=== PATIENT | male | born 1980 | race Caucasian/White ===

== ENCOUNTER 2020-07-09 11:25 | Outpatient (CLI) | payer OTHER, SELFPAY ==
--- NOTE | ~2020-07-09 | XR_ITS ---
EXAMINATION: XR knee RT 2V DATE: 07/09/2020 11:44 INDICATION: Right knee pain. TECHNIQUE: 2 views of right knee were obtained. COMPARISON: Right knee radiographs 11/14/2016 FINDINGS: Bone alignment is normal. No fracture. There is mild tricompartmental osteoarthritis. No kn ee joint effusion. IMPRESSION: 1. Mild right knee osteoarthritis. Reviewed, dictated and finalized at location A.
== END 2020-07-09 11:26 | disposition home or self-care (01) ==
PROVIDERS: PCP Nurse Practitioner Family; Visit Provider Nurse Practitioner Family
DX: M25.561 Pain in right knee (principal)
CPT/HCPCS: 73560

== ENCOUNTER 2020-11-05 10:35 | Outpatient (CLI) | payer BC, SELFPAY ==
[2020-11-05 14:42] LABS: SARS-CoV-2 Ag Positive (Negative)
[2020-11-05 22:05] LABS: SARS-CoV-2 RNA PCR Positive
== END 2020-11-05 10:36 | disposition home or self-care (01) ==
PROVIDERS: PCP Nurse Practitioner Family; Visit Provider Nurse Practitioner Family
DX: U07.1 COVID-19 (principal); R09.81 Nasal congestion; R43.2 Parageusia
CPT/HCPCS: 87426; C9803; U0003; U0005

== ENCOUNTER 2021-06-03 08:35 | Outpatient (RCR) | payer OTHER, SELFPAY ==
--- NOTE | 2021-06-03 09:10 | PTOPEVAL ---
Thank you for referring Sergey Knight to [facility].? The patient is scheduled to be seen for therapy? __3__x/week for 12 visits. Please review, sign, date and return this plan of care JASPREET. I agree with and certify that the following plan of care is medically necessary. Referring Physician Date Admitting Provider: Attending Provider: Contreras Cerda, MD Lanie Referring Provider: *PT Outpatient Evaluation Start: 06/03/21 08:36 Freq: Status: Active Protocol: Document 06/03/21 08:36 [facility] (Rec: 06/03/21 09:09 [facility] [id number]) Therapy Assessment Status Assessment Status Assessment Status Evaluation Evaluation Information Problem Diagnosis right knee microfx, med. and lat. menisectomies Onset 06/27/20 Subjective Information Pt. reports he tripped over a Query Text:As Reported By Patient/ piece of rebar in June of Family last year. He reports that fall resulted in tears in the meniscus. He states that he underwent surgery on the knee 05/06/21. He states that since surgery he has noticed the knee is giving out less. He states that he still cannot go up and down steps without pain and buckling of the knee. He states that navigating stairs remains difficult due to pain. He states that he has not returned to work since the initial injury. He reports that his doctor anticipates a return to work 3-4 months post surgery. He reports that his goal is to be able to walk normally again. Prior Level of Function Activity Level (Last 3 Months) Occupation construction work Hand Dominance Right Activity of Daily Living Ability Independent Indoor/Home Mobility Independent Community Mobility Independent Stairs Ability Independent Functional Cognition (Planning, Shopping Independent , Taking Medications) Cooking Yes Cleaning Yes Laundry Yes Shopping Yes Driving Yes Comments Additional Prior Level of Function Pt. reports that he had no Comments
--- NOTE | 2021-07-02 09:38 | PTOPEVAL ---
Thank you for referring Sergey Knight to [facility] [place] The patient is scheduled to be seen for therapy? ____x/week for ___ weeks. Please review, sign, date and return this plan of care JASPREET. I agree with and certify that the following plan of care is medically necessary. Referring Physician Date Admitting Provider: Attending Provider: Contreras Cerda, MD Lanie Referring Provider: *PT Outpatient Evaluation Start: 06/03/21 08:36 Freq: Status: Active Protocol: Document 07/02/21 08:15 [facility] (Rec: 07/02/21 09:37 [facility] [id number]) Therapy Assessment Status Assessment Status Assessment Status Re-evaluation Evaluation Information Problem Diagnosis right knee microfx, med. and lat. menisectomies Onset 06/27/20 Subjective Information patient reports he feels Query Text:As Reported By Patient/ alright this date. he reports Family he is unable to complete steps still on the R LE without the assist of bilateral hands on arm rails. he reports this activity increases his pain, and feels like his R knee is going to give out on him. he reports to return to work he needs to be able to carry things and frequently go up and down steps. Pain Assessment Timing of Pain Assessment Timing of Pain Assessment Assessment Pain Scale Pain Scale Used Numeric (1 - 10) Self Report Pain Assessment Right Knee(s) Reported Pain Level 3 Greatest Pain Intensity 6 Pain Score Pain Score 3: Self Report Interventions Used Interventions Used By Clinicians Activity or ADL's,Electrical Stimulation,Exercise,Heat Lower Extremity Range of Motion Knee Range of Motion Right Knee Flexion Range of Motion - Active 122 Knee Extension Range of Motion - Active 0 Query Text: Lower Extremity Muscle Strength Testing General Lower Extremity Strength Gross Lower Extremity Strength 440 lb single leg press L leg at seat position 12 85 lb single leg press R leg at seat position 12 Hip Strength Right Hip Flexion Strength 4+ Good + Knee Strength Right Knee Flexion Strength 5 Normal Knee Extension Strength 4+ Good + Muscle Length Testing Muscle Length Testing Right Hamstring Length 15 Query Text:(90 - 90 Position) Gait Assessment Gait Pattern Assessment Other
--- NOTE | 2021-07-17 08:57 | PCPTNOTE ---
Mr Knight has attended a total of 19 treatment sessions since evaluation on 06/03/21. Currently the patients treatment has consisted of modality treatment to address pain, therapeutic exercises to address strength, stability and range of motion, as well as therapeutic exercises to improve function. Patient currently presents with 0-180 degrees of AROM. There are no significant strength deficits noted with manual muscle testing this date. Patient does present with apprehension while descending stairs with noted twitching of the right lower extremity with this activity. Patient continues to present with apprehension while performing single limb press on right compared to left. Gait mechanics have significantly improved, however there is still a noted decreased stance time on right lower extremity compared to left especially after activity. While objective data has improved patient continues to express subjective limitations in regards to pain. We will continue with patient's current plan of care continuing to improve functional mobility specifically with stairs. Thank you for the referral of this patient. Please contact our team with any questions at [phone]. Sincerely, Shannan Mayen PTA / Westley Morales, MPT
--- NOTE | 2021-07-19 09:20 | PTOPEVAL ---
Thank you for referring Sergey Knight to [facility] [place] The patient is scheduled to be seen for therapy? ____x/week for ___ weeks. Please review, sign, date and return this plan of care JASPREET. I agree with and certify that the following plan of care is medically necessary. Referring Physician Date Admitting Provider: Attending Provider: Contreras CerdaJr. MD Referring Provider: *PT Outpatient Evaluation Start: 06/03/21 08:36 Freq: Status: Active Protocol: Document 07/19/21 08:15 [facility] (Rec: 07/19/21 09:19 [facility] [id number]) Therapy Assessment Status Assessment Status Assessment Status Re-evaluation Evaluation Information Problem Diagnosis right knee microfx, med. and lat. menisectomies Onset 06/27/20 Pain Assessment Timing of Pain Assessment Timing of Pain Assessment Assessment Pain Scale Pain Scale Used Numeric (1 - 10) Self Report Pain Assessment Right Knee(s) Reported Pain Level 3 Greatest Pain Intensity 6 Pain Score Pain Score 3: Self Report Interventions Used Interventions Used By Clinicians Activity or ADL's,Education, Exercise Lower Extremity Range of Motion Knee Range of Motion Right Knee Flexion Range of Motion - Active 130 Knee Extension Range of Motion - Active 0 Query Text: Lower Extremity Muscle Strength Testing General Lower Extremity Strength Gross Lower Extremity Strength 440 lb single leg press L leg at seat position 12 130 lb single leg press R leg at seat position 12 Hip Strength Right Hip Flexion Strength 4+ Good + Knee Strength Right Knee Flexion Strength 5 Normal Knee Extension Strength 4+ Good + Muscle Length Testing Muscle Length Testing Right Hamstring Length 15 Query Text:(90 - 90 Position) Palpation Assessment Palpation Palpation audible and palpable pop in the R patella coming from flexed to extended with overpressure of the R knee. Gait Assessment Gait Pattern Assessment Other Gait Observations patient ambulates into the clinic with normal gait mechanics. however, after stepping exercises, and leg press machine, patient does display antalgia favoring the R LE. patient is unable to push up onto step with the R LE without UE assist due to
--- NOTE | 2021-08-12 09:15 | PTOPEVAL ---
Thank you for referring Sergey Knight to [facility].? The patient is scheduled to be seen for therapy? ____x/week for ___ weeks. Please review, sign, date and return this plan of care JASPREET. I agree with and certify that the following plan of care is medically necessary. Referring Physician Date Admitting Provider: Attending Provider: Contreras CerdaJr. MD Referring Provider: *PT Outpatient Evaluation Start: 06/03/21 08:36 Freq: Status: Active Protocol: Document 08/12/21 08:11 [facility] (Rec: 08/12/21 09:13 [facility] [id number]) Therapy Assessment Status Assessment Status Assessment Status Progress Evaluation Information Problem Diagnosis R knee microfracture, medial and lateral menisectomies Onset 06/27/20 Subjective Information Patient reports that he Query Text:As Reported By Patient/ continues to have difficulty Family with steps because he needs to go one step at a time. He reports that his knee will give out if he steps with the R foot. He reports that ladders are worse than steps. Patient reports that when he moves from knee flexion to extension the knee cap feels tight and needs to pop. Pain Assessment Timing of Pain Assessment Timing of Pain Assessment Assessment Pain Scale Pain Scale Used Numeric (1 - 10) Self Report Pain Assessment Right Knee(s) Reported Pain Level 3 Greatest Pain Intensity 6 Pain Score Pain Score 3: Self Report Interventions Used Interventions Used By Clinicians Activity or ADL's,Exercise Lower Extremity Muscle Strength Testing General Lower Extremity Strength Gross Lower Extremity Strength 440 lb single press on L leg at seat position 12 130 lb single leg press on R leg at seat position 12 Hip Strength Right Hip Flexion Strength 5 Normal Knee Strength Right Knee Flexion Strength 5 Normal Knee Extension Strength 5 Normal Muscle Length Testing Muscle Length Testing Right Hamstring Length 10 Query Text:(90 - 90 Position) General Exercise General Exercises Exercise Description - nustep 10 minutes level 6 Query Text:Record Sets, Reps, - shallow squats x 20 on BOSU Resistance, and Position - lunges BOSU x 20 - fitterboard taps x 20 and balance x 1 min both directions
--- NOTE | 2021-08-26 08:47 | PCPTNOTE ---
Sergey Knight Male : 1980 Emr# [id number] Mr Knight has attended a total of 36 treatment sessions since evaluation on 06/03/21. Currently the patients treatment has consisted of therapeutic exercises to address strength, stability and range of motion, as well as therapeutic exercises to improve function. Patient currently presents with 0-130 degrees of AROM. There are no significant strength deficits noted with manual muscle testing this date slightly at a 4+/5 on right vs 5/5 on left quads. Patient has improved with strength on single leg press to 130# on right compared to 60# initially. Gait mechanics have significantly improved until patient has to carry anything with weight in whiich his gait pattern changes to decreased stance time on right. While objective data has improved patient continues to express subjective limitations in regards to pain. We will continue with patient's current plan of care continuing to improve functional mobility specifically with stairs. Thank you for the referral of this patient. Please contact our team with any questions at [phone]. Sincerely, Marilyn Gonzalez PTA / Westley Morales, MPT
--- NOTE | 2021-08-30 11:10 | PTOPEVAL ---
Thank you for referring Sergey Knight to [facility].? The patient is scheduled to be seen for therapy? ____x/week for ___ weeks. Please review, sign, date and return this plan of care JASPREET. I agree with and certify that the following plan of care is medically necessary. Referring Physician Date Admitting Provider: Attending Provider: Contreras CerdaJr. MD Referring Provider: *PT Outpatient Evaluation Start: 06/03/21 08:36 Freq: Status: Active Protocol: Document 08/30/21 09:00 [facility] (Rec: 08/30/21 11:09 [facility] [email or web address]) Therapy Assessment Status Assessment Status Assessment Status Re-evaluation Evaluation Information Problem Diagnosis R tibial microfracture Onset 06/27/20 Subjective Information Patient reports that the knee Query Text:As Reported By Patient/ is really bothering him with Family functional activities such as steps and walking. He reports he still is not able to get back to his work activities safely. Pain Assessment Timing of Pain Assessment Timing of Pain Assessment Assessment Pain Scale Pain Scale Used Numeric (1 - 10) Self Report Pain Assessment Right Knee(s) Reported Pain Level 3 Greatest Pain Intensity 7 Pain Score Pain Score 3: Self Report Interventions Used Interventions Used By Clinicians Activity or ADL's,Exercise Lower Extremity Muscle Strength Testing Knee Strength Right Knee Flexion Strength 5 Normal Knee Extension Strength 4+ Good + Knee Strength Comments 170lb single leg press on the R at seat position 12- max Gait Assessment Gait Assessment Additional Ambulation Comments Patient ambulates into the clinic with proper mechanics at the beginning of the session, but after exercises, the patient ambulates out of the clinic with antalgia due to decreased stance time on the R. Stair Climbing Assessment Stair Climbing Assessment Stair Climbing Comments Patient unable to ascend and descend steps this visit without significant UE use. General Exercise General Exercises Exercise Description please refer to Shannan Query Text:Record Sets, Reps, [place], [employer] treatment note Resistance, and Position for session with patient PT Clinical Summary Clinical Summary Protocol: PTEVCODE PT Clinical Summary Patient is a 40 year old male
== END 2021-08-30 23:59 | disposition still patient (30) ==
LOC: CHSPT 08:35
PROVIDERS: Visit Provider Orthopaedic Surgery
DX: S82.001D Unspecified fracture of right patella, subsequent encounter for closed fracture with routine healing (principal); Z98.890 Other specified postprocedural states
CPT/HCPCS: 97014; 97110; 97161; 97530; G0283

== ENCOUNTER 2021-09-02 08:33 | Outpatient (RCR) | payer OTHER, SELFPAY ==
--- NOTE | 2021-10-17 09:17 | PTOPEVAL ---
Thank you for referring Sergey Knight to [facility]. Please review, sign, date and return this plan of care JASPREET. I agree with and certify that the following plan of care is medically necessary. Referring Physician Date Admitting Provider: Attending Provider: Contreras CerdaJr. MD Referring Provider: *PT Outpatient Evaluation Start: 09/25/21 08:06 Freq: Status: Active Protocol: Document 10/17/21 08:24 [facility] (Rec: 10/17/21 09:11 [facility] [email or web address]) Therapy Assessment Status Assessment Status Assessment Status Discharge Evaluation Information Problem Diagnosis right tibial microfracture Onset 06/27/20 Subjective Information Pt. reports that he is feeling Query Text:As Reported By Patient/ better. He reports that pain Family levels are currently 2/10. He reports that climbing a ladder or stairs increase pain to 5-6/10, but pain reduces back to 2/10 after 30 minutes. He reports that he returns to the doctor next week. He states that his biggest concern is navigation of ladders and stairs upon return to work, as he still has pain with these activities. Pain Assessment Pain Scale Pain Scale Used Numeric (1 - 10) Self Report Pain Assessment Right Knee(s) Reported Pain Level 2 Pain Score Pain Score 2: Self Report Interventions Used Interventions Used By Clinicians Activity or ADL's,Education, Exercise,Standing Lower Extremity Range of Motion General Lower Extremity Range of Motion Gross Lower Extremity Range of Motion Pt. presents with 0-128 Comments degrees right knee AROM Lower Extremity Muscle Strength Testing General Lower Extremity Strength Gross Lower Extremity Strength Pt. completes single limib leg press from 90 degrees to full knee extension with 1 rep max of 230#. No deficits in l.e. strength noted with manual mm . testing on the date. Gait Assessment Gait Assessment Additional Ambulation Comments Pt. ambulates over level surface without deviation. He navigates steps with reciprical pattern without handhold. General Exercise General Exercises Exercise Description -recumbent bike x 10 minutes Query Text:Recor
--- NOTE | 2021-11-01 10:33 | PTOPEVAL ---
Thank you for referring Sergey Knight to [facility] [place]Note 3[facility]? The patient is scheduled to be seen for therapy? ____x/week for ___ weeks. Please review, sign, date and return this plan of care JASPREET. I agree with and certify that the following plan of care is medically necessary. Referring Physician Date Admitting Provider: Attending Provider: Contreras Cerda, MD Lanie Referring Provider: *PT Outpatient Evaluation Start: 09/25/21 08:06 Freq: Status: Active Protocol: Document 11/01/21 08:30 [facility] (Rec: 11/01/21 10:32 [facility] [id number]) Therapy Assessment Status Assessment Status Assessment Status Re-evaluation Evaluation Information Problem Diagnosis right tibial microfracture Onset 06/27/20 Additional Evaluation Detail LEFS = 41% functionally declined FABQPA = 13 FABQW = 30 Subjective Information patient reports he returned to Query Text:As Reported By Patient/ see his MD on or about 10/23/ Family 22. he reports he is still having pain in the R knee. he reports his Md was not ok with sending him back to work at this time. he reports he is awaiting an MRI of the R knee, but MD requests her continue skilled PT until pain is resolved. he reports he continues to have pain with steps, climbing (like ladders) , lunges, and stepping forward with the R knee first. he reports he was not cleared to return to work in any capacity yet. patients new orders suggest 3x weekly for 5 weeks (15 total visits). Pain Assessment Timing of Pain Assessment Timing of Pain Assessment Assessment Pain Scale Pain Scale Used Numeric (1 - 10) Self Report Pain Assessment Right Knee(s) Reported Pain Level 2 Greatest Pain Intensity 6 Pain Score Pain Score 2: Self Report Interventions Used Interventions Used By Clinicians Activity or ADL's,Education, Exercise,Standing Lower Extremity Range of Motion General Lower Extremity Range of Motion Gross Lower Extremity Range of Motion Pt. presents with 0-128 Comments degrees right knee AROM Lower Extremity Muscle Strength Testing General Lower Extremity Strength Gross Lower Extremity Strength 210# x1 rep on the R LE leg
== END 2021-12-02 23:59 | disposition still patient (30) ==
LOC: CHSPT 08:33
PROVIDERS: Visit Provider Orthopaedic Surgery
DX: Z98.890 Other specified postprocedural states (principal)
CPT/HCPCS: 97110; 97164; 97530

== ENCOUNTER 2021-12-04 08:30 | Outpatient (RCR) | payer OTHER, SELFPAY ==
--- NOTE | 2021-12-11 10:02 | PTOPEVAL ---
Thank you for referring Sergey Knight to [facility].? The patient is scheduled to be seen for therapy? ____x/week for ___ weeks. Please review, sign, date and return this plan of care JASPREET. I agree with and certify that the following plan of care is medically necessary. Referring Physician Date Admitting Provider: Attending Provider: Contreras Cerda, MD Lanie Referring Provider: *PT Outpatient Evaluation Start: 12/04/21 08:30 Freq: Status: Active Protocol: Document 12/04/21 08:30 [facility] (Rec: 12/11/21 10:01 [facility] [email or web address]) Therapy Assessment Status Assessment Status Assessment Status Re-evaluation Evaluation Information Problem Diagnosis R tibial microfracture and mensicectomies Onset 06/27/20 Subjective Information patient reports continues pain Query Text:As Reported By Patient/ in the R knee with heavy Family lifting, leg press, and ladder climbing activities. he reports he attempted to climb a ladder last night at home, but was unable to control himself using just legs on ladder, and was unable to push up with the R LE on the ladder to climb. Pain Assessment Timing of Pain Assessment Timing of Pain Assessment Assessment Pain Scale Pain Scale Used Numeric (1 - 10) Self Report Pain Assessment Right Knee(s) Reported Pain Level 3 Pain Score Pain Score 3: Self Report Interventions Used Interventions Used By Clinicians Activity or ADL's,Education, Exercise Lower Extremity Range of Motion General Lower Extremity Range of Motion Reason Not Measured WNL/Left,WNL/Right Lower Extremity Muscle Strength Testing General Lower Extremity Strength Gross Lower Extremity Strength 5/5 R knee strength sitting EOB patient displays 430lb 1 rep leg press strength of the L LE patient displays increase from 210lb 1 rep leg press on the R LE to 220lb 1 rep leg press on the R this date. Gait Assessment Gait Pattern Assessment Other Gait Observations patient ambulates with mild R trunk lean antalgia still on level ground. patient ambulates up steps reciprocally but with hand rail hold and increased effort
--- NOTE | 2022-01-01 06:53 | PTOPEVAL ---
Thank you for referring Sergey Knight to [facility]. Please review, sign, date and return this plan of care JASPREET. I agree with and certify that the following plan of care is medically necessary. Referring Physician Date Admitting Provider: Attending Provider: Contreras Cerda, MD Lanie Referring Provider: *PT Outpatient Evaluation Start: 12/04/21 08:30 Freq: Status: Active Protocol: Document 12/31/21 15:00 [facility] (Rec: 01/01/22 06:53 [facility] [email or web address]) Therapy Assessment Status Assessment Status Assessment Status Progress Evaluation Information Problem Diagnosis right tibial microfractutre and menisectomy Onset 06/27/20 Subjective Information Pt. reports that he still has Query Text:As Reported By Patient/ concern with going up and down Family steps at work. He states that he has to be able to navigate stairs with 40# cables over his shoulders. He reports that the right leg is still a little shaky with stairs. He states that he would consider returning to work and seeing if he can do most task and feels that he may be able to make modifications to be able to return to work. Pain Assessment Timing of Pain Assessment Timing of Pain Assessment Pre-Treatment Pain Scale Pain Scale Used Numeric (1 - 10) Self Report Pain Assessment Right Knee(s) Reported Pain Level 2 Lowest Pain Intensity 0 Greatest Pain Intensity 4 Pain Aggravating Factors Stair Climbing Pain Score Pain Score 2: Self Report Interventions Used Interventions Used By Clinicians Activity or ADL's,Exercise Lower Extremity Muscle Strength Testing General Lower Extremity Strength Gross Lower Extremity Strength Pt. demonstrates no strength deficits at the bilateral l.e. with manual mm. testing. He completes 1 rep max on the leg press with the right l.e. with a max weight of 280#, a 60# increase since last evaluated. Posture Posture Standing Position Additional Posture Comments Despite reported right l.e. weakness, pt. presents with no indication of atrophy wtih
--- NOTE | 2022-01-08 16:00 | PTOPEVAL ---
Thank you for referring Sergey Knight to [facility].? The patient is scheduled to be seen for therapy? ____x/week for ___ weeks. Please review, sign, date and return this plan of care JASPREET. I agree with and certify that the following plan of care is medically necessary. Referring Physician Date Admitting Provider: Attending Provider: Contreras Cerda, MD Lanie Referring Provider: *PT Outpatient Evaluation Start: 12/04/21 08:30 Freq: Status: Active Protocol: Document 01/08/22 08:30 [facility] (Rec: 01/08/22 15:59 [facility] [email or web address]) Therapy Assessment Status Assessment Status Assessment Status Re-evaluation Evaluation Information Problem Diagnosis right tibial microfractutre and menisectomy Onset 06/27/20 Subjective Information patient reports he has Query Text:As Reported By Patient/ returned from his MD with new Family orders to continue skilled PT. he reports he asked about continuing with work conditioning and his surgeon is happy with the therapy he is in now. he reports he needs to contineu to improve his strength so there is less of a gap between single leg press strength of the L and R LE's. Pain Assessment Timing of Pain Assessment Timing of Pain Assessment Assessment Pain Scale Pain Scale Used Numeric (1 - 10) Self Report Pain Assessment Right Knee(s) Reported Pain Level 3 Pain Score Pain Score 3: Self Report Interventions Used Interventions Used By Clinicians Activity or ADL's,Education, Exercise Lower Extremity Muscle Strength Testing General Lower Extremity Strength Gross Lower Extremity Strength Pt. demonstrates no strength deficits at the bilateral l.e. with manual mm. testing. He completes 40 reps at 220lbs with the R LE on single leg press. single leg R LE leg press max of 280lbs. Gait Assessment Gait Assessment Additional Ambulation Comments Pt. ambulates over level surface without deviation. he displays ability to ambulate up and down step of 8in height with single leg performance and no handrail assist both forward and laterally. General Exercise General Exercises Exercise Vlad
--- NOTE | 2022-02-06 09:18 | PTOPEVAL ---
Thank you for referring Sergey Knight to [facility].? Please review, sign, date and return this plan of care JASPREET. I agree with and certify that the following plan of care is medically necessary. Referring Physician Date Admitting Provider: Attending Provider: Contreras CerdaJr. MD Referring Provider: *PT Outpatient Evaluation Start: 12/04/21 08:30 Freq: Status: Active Protocol: Document 02/06/22 07:30 [facility] (Rec: 02/06/22 09:18 [email or web address]) Therapy Assessment Status Assessment Status Assessment Status Progress Evaluation Information Problem Diagnosis right tibial microfracture and menisectomy Onset 06/27/20 Subjective Information Pt. reports he currently has Query Text:As Reported By Patient/ no pain. He reports that he Family may experience a brief bout of pain that is 4/10 at worst, but subsides quickly. He is going up and down stairs without a problem. He reports that he still has concern regarding navigating steps at work with extra weight. Pt. reports that he will return to the doctor tomorrow. Pain Assessment Timing of Pain Assessment Timing of Pain Assessment Pre-Treatment Self Report Self Report Pain Level 0 Pain Score Pain Score 0: Self Report Lower Extremity Muscle Strength Testing General Lower Extremity Strength Gross Lower Extremity Strength Manual mm. testing continues to demonstrate symmetry. He performs 1 rep max of 320# on the right with the leg press demonstrating a 40# increase since last progress note. Gait Assessment Gait Assessment Additional Ambulation Comments Pt. ambulates over level surface demonstrating equal right and left stance time. Stair Climbing Assessment Stair Climbing Assessment Stair Climbing Comments Pt. performs step ups on standard 8 step with 40# total weight in the u.e. for 20 reps without deviation or increase in pain. General Exercise General Exercises Exercise Description Ther Ex: Query Text:Record Sets, Reps, -tall kneeling knee flexion Resistance, and Position stretch x 4 minutes -Recumbent bike x 8 minute
--- NOTE | 2022-03-04 09:47 | PTOPEVAL ---
Thank you for referring Sergey Knight to [facility].? The patient is scheduled to be seen for therapy? _3___x/week for 9 visits focusing on work conditioning. Please review, sign, date and return this plan of care JASPREET. I agree with and certify that the following plan of care is medically necessary. Referring Physician Date Admitting Provider: Attending Provider: Contreras CerdaJr. MD Referring Provider: *PT Outpatient Evaluation Start: 12/04/21 08:30 Freq: Status: Active Protocol: Document 03/04/22 07:40 [facility] (Rec: 03/04/22 09:46 [facility] [email or web address]) Evaluation Information Problem Subjective Information Pt. denies pain this morning. Query Text:As Reported By Patient/ He reports that stairs are Family becoming much easier and recalls no real pain. He has attempted ladders at home and still notes pain with going up and down ladders. He states that he has seen a big change in his comfort level with stairs in the recent weeks. Pain Assessment Timing of Pain Assessment Timing of Pain Assessment Pre-Treatment Self Report Self Report Pain Level 0 Pain Score Pain Score 0: Self Report Lower Extremity Muscle Strength Testing General Lower Extremity Strength Gross Lower Extremity Strength Pt. complete 1 rep max single limb leg press on the right with max weight of 420#. Gait Assessment Gait Assessment Additional Ambulation Comments Pt. navigates steps with a recipricol pattern. He ambulates over level surface without deviation. General Exercise General Exercises Exercise Description -lifting station for floor to Query Text:Record Sets, Reps, waist lifts and waist to Resistance, and Position overhead lifts x 30 reps of each with 32.5# -recumbent bike level 10 x 15 minutes to improve l.e. strength and improve endurance -TM retro walking at 8% incline to improve l.e. strength and endurance x 8 minutes -forward walking at 2.0 mph with 8% incline to further improve endurance x 8 minutes -step ups with 40# weight briefcase carry to mimic carrying objects up steps x 15
== END 2022-03-04 23:59 | disposition still patient (30) ==
LOC: CHSPT 08:30
PROVIDERS: Visit Provider Orthopaedic Surgery
DX: Z98.890 Other specified postprocedural states (principal); S82.001D Unspecified fracture of right patella, subsequent encounter for closed fracture with routine healing
CPT/HCPCS: 97110; 97530; 97545

== ENCOUNTER 2022-03-06 11:04 | Outpatient (RCR) | payer OTHER, SELFPAY ==
--- NOTE | 2022-04-02 09:13 | PTOPEVAL ---
Thank you for referring Sergey Knight to [facility].? The patient is scheduled to be seen for therapy? ____x/week for ___ weeks. Please review, sign, date and return this plan of care JASPREET. I agree with and certify that the following plan of care is medically necessary. Referring Physician Date Admitting Provider: Attending Provider: Contreras CerdaJr. MD Referring Provider: *PT Outpatient Evaluation Start: 03/06/22 11:52 Freq: Status: Active Protocol: Document 04/02/22 07:30 [facility] (Rec: 04/02/22 09:12 [facility] [email or web address]) Therapy Assessment Status Assessment Status Assessment Status Discharge Evaluation Information Problem Diagnosis R Tibial Microfracture and Meniscectomy Onset 06/27/20 Additional Evaluation Detail LEFS = 26% Functionally Declined Subjective Information Pt reports that his knee is Query Text:As Reported By Patient/ feeling better since beginning Family therapy. He states that his knees are feeling stronger and more stable. He used to have difficulty using steps and ladders, but this has become easier for him. He is eager to return to work and feels ready to do so as he feels that he can do anything he wants that he was able to do prior to his injury. Pain Assessment Timing of Pain Assessment Timing of Pain Assessment Pre-Treatment Self Report Self Report Pain Level 0 Pain Score Pain Score 0: Self Report Lower Extremity Range of Motion Knee Range of Motion Right Knee Flexion Range of Motion - Active 125 Knee Extension Range of Motion - Active 5 Query Text: Left Knee Flexion Range of Motion - Active 120 Knee Extension Range of Motion - Active 3 Query Text: Lower Extremity Muscle Strength Testing General Lower Extremity Strength Gross Lower Extremity Strength Unilateral Leg Press 1RM: - L LE = 495# - R LE = 450# Hip Strength Right Hip Flexion Strength 5 Normal Hip Abduction Strength 5 Normal Left Hip Flexion Strength 5 Normal Hip Abduction Strength 5 Normal Knee Strength Right Knee Flexion Strength 5 Normal Knee Extension Strength 5 Normal Left Knee Flexion Strength 5 Normal Knee Extension Strength 5 Normal Muscle Length Testing Muscle Length Testing Left Hamstring Length 0
== END 2022-04-02 10:23 | disposition home or self-care (01) ==
LOC: CHSPT 11:04
PROVIDERS: Visit Provider Orthopaedic Surgery
DX: S83.421A Sprain of lateral collateral ligament of right knee, initial encounter (principal); S83.281A Other tear of lateral meniscus, current injury, right knee, initial encounter; S83.31XD Tear of articular cartilage of right knee, current, subsequent encounter
CPT/HCPCS: 97545